=== PATIENT | female | born 1950 | race Caucasian/White ===

== ENCOUNTER → 2023-10-13 07:08 | Outpatient (REF) | payer MEDICARE, OTHER, SELFPAY | LOC: RAD 07:08 | PROVIDERS: ATTENDING PHYSICIAN Family Medicine | DX: J94.8 Other specified pleural conditions (principal) | CPT/HCPCS: 71250 ==

== ENCOUNTER → 2024-01-15 14:10 | Outpatient (REF) | payer MEDICARE, OTHER, SELFPAY | LOC: HWRAD 14:10 | PROVIDERS: ATTENDING PHYSICIAN Internal Medicine Critical Care Medicine; FAMILY PHYSICIAN Family Medicine | DX: J21.9 Acute bronchiolitis, unspecified (principal); D17.4 Benign lipomatous neoplasm of intrathoracic organs; I10 Essential (primary) hypertension; R93.89 Abnormal findings on diagnostic imaging of other specified body structures | CPT/HCPCS: 71250 ==